=== PATIENT | female | born 1940 | race Caucasian/White ===

== ENCOUNTER 2016-06-13 17:23 | Emergency (ER) | payer MEDICARE ==
[~2016-06-13] VITALS: Ht 165.1 cm; Wt 68.0 kg
[2016-06-13] MEDS ORDERED: PRAV40TA2 PO (17:45)
[2016-06-13] MEDS ORDERED: BIMA01SOL (17:45)
[2016-06-13] MEDS ORDERED: AMLO25TA PO (17:45)
[2016-06-13] MEDS ORDERED: PLAV75TA38 PO (17:45)
[2016-06-13] MEDS ORDERED: BRIN1OPH (17:45)
[2016-06-13] MEDS ORDERED: LEVO88TA3 PO (17:45)
--- NOTE | 2016-06-13 19:44 | REP ---
CT HEAD WITHOUT CONTRAST: HISTORY: Syncope. COMPARISON: None. TECHNIQUE: 4.5 mm contiguous transaxial sections were obtained from the skull base to the cerebral convexities with thin cuts through the posterior fossa with and without the administration of intravenous contrast. FINDINGS: The ventricles and sulci are consistent with the patient's age. There are no extra-axial fluid collections. There is no mass effect on the non-contrast scan and there are no enhancing mass lesions on the post contrast scan. The deep cerebral white matter is consistent with the patient's age. The orbital and petrous structures, cerebellopontine angles and posterior fossa are unremarkable. The sella turcica, cavernous and paracavernous structures are essentially unremarkable. The visualized portions of the paranasal sinuses and mastoid air cells are clear. IMPRESSION: Essentially unremarkable CT examination of the brain. Signed by Davin Garcia DO 06/13/2016 07:51 P
[2016-06-13 20:25] VITALS: BP 125/66
--- NOTE | 2016-06-13 21:10 | ECGEPIP ---
Stationary ECG Study [facility] - ED Test Date: 2016-06-13 Pat Name: SHADE SANDOVAL Department: Room: - Gender: F Admitting Clerk: chris : [id number] Requested By: KITTY Parrish Order Number: [id number] Reading MD: Moira Romero Measurements Intervals Orient Rate: 70 P: 50 MA: 149 QRS: 16 QRSD: 92 T: 39 QT: 398 QTc: 431 Interpretive Statements SINUS RHYTHM WITH OCCASIONAL VENTRICULAR PREMATURE COMPLEXES NO PRIOR FOR COMPARISON Electronically Signed On 06-13-2016 21:10:06 EDT by Moira Romero
== END 2016-06-13 20:27 | disposition left against medical advice (07) ==
LOC: M ED 19:42
DX: R42 Dizziness and giddiness (principal); N39.0 Urinary tract infection, site not specified; I10 Essential (primary) hypertension; E78.5 Hyperlipidemia, unspecified; Z95.5 Presence of coronary angioplasty implant and graft; F17.200 Nicotine dependence, unspecified, uncomplicated; Z79.02 Long term (current) use of antithrombotics/antiplatelets; Z79.899 Other long term (current) drug therapy

== ENCOUNTER → 2016-06-13 | Outpatient (REF) | payer MEDICARE ==
[~2016-06-13] MED LIST: AMLO25TA PO; BIMA01SOL; BRIN1OPH; LEVO88TA3 PO; PLAV75TA38 PO; PRAV40TA2 PO
== END ==
LOC: M LAB REF 16:26
PROVIDERS: ATTEND Physician Assistant
DX: N39.0 Urinary tract infection, site not specified (principal)

== ENCOUNTER 2018-01-28 06:44 | Day surgery (SDC) | payer MEDICARE ==
[~2018-01-28 06:44] MED LIST changes: +ACETAMINOPHEN 325 MG TAB PO; -AMLO25TA PO; -BIMA01SOL; -BRIN1OPH; -LEVO88TA3 PO; -PLAV75TA38 PO; -PRAV40TA2 PO
[2018-01-28] MEDS ORDERED: PHENYLEPHRINE HCL 10 % OPHTH. SOL 5ML OS (07:00)
[2018-01-28] MEDS ORDERED: PROPARACAINE 0.5% OPHTH SOL 15ML OS (07:01)
[2018-01-28] MEDS: LIDOCAINE 3.5 % 1ML OPHTH TOPICAL GEL OU (07:44)
[2018-01-28] MEDS: OFLOXACIN 0.3 % (OCUFLOX) OPTH SOL 5ML OS (07:44)
[2018-01-28] MEDS: CYCLOPENTOLATE 2% OPHTH SOLN 2ML BTL OS (07:45)
[2018-01-28] MEDS: TROPICAMIDE 1% OPHTH SOLN 2ML OS (07:45)
[2018-01-28] MEDS: PHENYLEPHRINE 2.5% OPHTH SOL 2ML OS (07:45)
[2018-01-28] MEDS: TRIAMCINOLONE PRES FR 40 MG/ML 1ML(TRIESENCE)(OR EYE ONLY)(J3300 PER 1MG) As Ordered (07:53)
[2018-01-28] MEDS: MOXIFLOXACIN IN BSS 0.25MG/0.25ML INTRACAMERAL INJ (OR EYE ONLY)(J2280) As Ordered (07:53)
[2018-01-28] MEDS ORDERED: SCOPOLAMINE 1MG TRANSDERMAL PATCH As Ordered (08:14)
[2018-01-28] MEDS ORDERED: ONDANSETRON 4MG/2ML VIAL (J2405) As Ordered (08:15)
[2018-01-28] MEDS ORDERED: ONDANSETRON 4MG/2ML VIAL (J2405) IV (08:30)
[2018-01-28] MEDS ORDERED: fentaNYL 100 MCG/2 ML INJECTION (J3010) As Ordered (08:37)
[2018-01-28] MEDS ORDERED: MIDAZOLAM INJ 2 MG/2 ML VIAL (J2250) As Ordered (08:37)
[2018-01-28] MEDS: POVIDONE-IODINE 5% OPHTH PREP SOL 30ML As Ordered (08:39)
[2018-01-28] MEDS: HEALON DUET (HEALON 10MG/ML 0.55ML & HEALON ENDOCOAT 30MG/ML 0.85ML) As Ordered (08:48)
[2018-01-28] MEDS: BSS with VANC/TOB/EPI for EYE CASES IR (08:48)
[2018-01-28] MEDS: LIDOCAINE 1% SDV 5 ML VIAL As Ordered (08:48)
[2018-01-28] MEDS: CEFUROXIME 1MG/0.1ML INTRACAMERAL INJ As Ordered (08:49)
[2018-01-28] MEDS: AcetaZOLAMIDE 500 MG ER CAP PO (09:23)
[2018-01-28] MEDS ORDERED: TRIMETHOBENZAMIDE 300 MG CAP PO (09:30)
[2018-01-28] MEDS ORDERED: KETOROLAC 0.5% OPHTH SOLN OS (09:30)
== END 2018-01-28 09:38 | disposition home or self-care (01) ==
LOC: M SDC 06:44
DX: H26.9 Unspecified cataract (principal); H40.9 Unspecified glaucoma; I10 Essential (primary) hypertension; E78.00 Pure hypercholesterolemia, unspecified; I73.9 Peripheral vascular disease, unspecified; K21.9 Gastro-esophageal reflux disease without esophagitis; Z79.899 Other long term (current) drug therapy; Z79.01 Long term (current) use of anticoagulants; Z95.828 Presence of other vascular implants and grafts; Z72.0 Tobacco use; Z90.710 Acquired absence of both cervix and uterus
CPT/HCPCS: 66984

== ENCOUNTER 2020-05-24 17:59 | Emergency (ER) | payer MEDICARE ==
[~2020-05-24] VITALS: Ht 160 cm; Wt 63.0 kg
[~2020-05-24 17:59] MED LIST changes: -ACETAMINOPHEN 325 MG TAB PO; +AMLO25TA PO; +BIMA01SOL; +BRIN1OPH OU; +LEVO88TA3 PO; +OMEP40CA97 PO; +PLAV1TAB2 PO; +PRAV40TA2 PO; +[UNRECOGNIZED DRUG - OTHER] OU
[2020-05-24] MEDS ORDERED: PREDOPD (18:10)
[2020-05-24] MEDS ORDERED: COMB0.2S (18:10)
[2020-05-24] MEDS ORDERED: PRESCAP PO (18:10)
[2020-05-24] MEDS ORDERED: NYSTATIN 100,000 UNITS/GM TOPICAL PWD 15 GM TOP STA (19:08)
[2020-05-24 19:22] LABS: BASO % 0.6 % (0.0-1.0); EOS # 0.2 10^3/uL (0.0-0.5); EOS % 3.5 % (0.0-3.0); HEMATOCRIT 42.9 % (36.0-47.0); HEMOGLOBIN 13.6 g/dl (12.0-15.5); LYMPH # 2.1 10^3/uL (1.5-5.0); LYMPH % 31.3 % (24.0-44.0); MEAN CORPUSCULAR HEMOGLOBIN 30.2 pg (27.0-33.0); MEAN CORPUSCULAR HGB CONC 31.7 g/dl (32.0-36.5); MEAN CORPUSCULAR VOLUME 95.1 fl (80.0-96.0); MONO # 0.6 10^3/uL (0.0-0.8); MONO % 9.1 % (2.0-8.0); NEUTROPHILS # 3.6 10^3/uL (1.5-8.5); NEUTROPHILS % 55.2 % (36.0-66.0); PLATELET COUNT, AUTOMATED 234 10^3/uL (150-450); RED BLOOD COUNT 4.51 10^6/uL (4.00-5.40); WHITE BLOOD COUNT 6.6 10^3/uL (4.0-10.0)
[2020-05-24 19:48] LABS: ALBUMIN 4.3 GM/DL (3.2-5.2); BILIRUBIN,DIRECT 0.1 MG/DL (0.0-0.2); BILIRUBIN,TOTAL 0.3 MG/DL (0.2-1.0); TOTAL PROTEIN 7.7 GM/DL (6.4-8.2)
[2020-05-24] MEDS ORDERED: ISOVUE-370 76% 100ML VIAL As Ordered ONE (20:29)
--- NOTE | 2020-05-24 21:07 | REPVR ---
PROCEDURE INFORMATION: Exam: CT Abdomen And Pelvis With Contrast Exam date and time: 05/24/2020 8:33 PM Age: 80 years old Clinical indication: Abdominal pain; Additional info: Diffuse abd pain, worse with food, 5 days TECHNIQUE: Imaging protocol: Computed tomography of the abdomen and pelvis with contrast. Radiation optimization: All CT scans at this facility use at least one of these dose optimization techniques: automated exposure control; mA and/or kV adjustment per patient size (includes targeted exams where dose is matched to clinical indication); or iterative reconstruction. Contrast material: ISOVUE 370; Contrast volume: 100 ml; Contrast route: INTRAVENOUS (IV); COMPARISON: No relevant prior studies available. FINDINGS: Lungs: No suspicious mass or airspace process in the visualized lung bases. Liver: Liver appears normal with no focal abnormality. Gallbladder and bile ducts: Gallbladder is present and shows no evidence of gallstone. Pancreas: Pancreas appears normal. No focal mass or peripancreatic inflammation. Spleen: Spleen appears homogeneous without focal mass. Adrenal glands: Adrenal glands are normal in appearance. Kidneys and ureters: Kidneys appear normal, with no stone, solid mass or hydronephrosis. Stomach and bowel: No concerning asymmetry or abnormality at the GE junction. No evidence of small bowel obstruction. There may be eccentric edema involving the distal gastric antrum. Terminal ileum has normal appearance. Diverticular changes are present within the colon without inflammation. Appendix: Normal caliber appendix is identified, with no adjacent inflammation. Intraperitoneal space: No pneumoperitoneum. Vasculature: Atherosclerotic change present in the aorta, without aneurysm. Main portal and splenic veins enhance normally. Bilateral common iliac artery stents are present. Lymph nodes: Unremarkable. No enlarged lymph nodes. Urinary bladder: Urinary bladder appears normal. Reproductive: Unremarkable as visualized. Bones/joints: Degenerative changes are seen in the lumbar spine with disc height loss, endplate osteophytes and hypertrophic facet arthropathy. Old appearing insufficiency fractures at L5 and T12. Soft tissues: Unremarkable. IMPRESSION: Eccentric mural edema involving the posterior wall of the distal gastric antrum, suggesting gastritis or peptic ulcer disease. No evidence of perforated ulcer. Electronically signed by: Moses Palacios On 05/24/2020 21:07:53 PM
[2020-05-24] MEDS ORDERED: NYST1POW9 TOP (21:57)
[2020-05-24 22:01] VITALS: BP 168/86
== END 2020-05-24 22:08 | disposition home or self-care (01) ==
LOC: M ED 17:59
DX: B37.2 Candidiasis of skin and nail (principal); R10.84 Generalized abdominal pain; I10 Essential (primary) hypertension; E78.5 Hyperlipidemia, unspecified; Z79.899 Other long term (current) drug therapy; Z79.01 Long term (current) use of anticoagulants; Z88.1 Allergy status to other antibiotic agents; Z88.2 Allergy status to sulfonamides
CPT/HCPCS: 36415; 74177; 80047; 80076; 81001; 83690; 85025; 99283; Q9967

== ENCOUNTER 2020-08-12 19:14 | Emergency (ER) | payer MEDICARE ==
[~2020-08-12] VITALS: Ht 160 cm; Wt 61.4 kg
[~2020-08-12 19:14] MED LIST changes: +COMB0.2S; +NYST1POW9 TOP; +PREDOPD; +PRESCAP PO
[2020-08-12 19:15] VITALS: BP 125/72
[2020-08-12] MEDS ORDERED: DOXY-350 PO (20:20)
[2020-08-15 14:16] LABS: Lyme Disease IgG/IgM Antibodie <0.91 ISR (0.00-0.90); Lyme Disease IgM Ab Quantitati <0.80 index (0.00-0.79)
== END 2020-08-12 20:30 | disposition home or self-care (01) ==
LOC: M ED 19:14
DX: R21 Rash and other nonspecific skin eruption (principal); I10 Essential (primary) hypertension; E78.5 Hyperlipidemia, unspecified; Z79.899 Other long term (current) drug therapy; Z88.2 Allergy status to sulfonamides

== ENCOUNTER → 2022-10-25 | Outpatient (CLI) | payer MEDICARE ==
[~2022-10-25] MED LIST changes: +CLOP75TA99 PO; +DOXY-444 PO; +OMEP40CA4 PO; -OMEP40CA97 PO; -PLAV1TAB2 PO
== END ==
LOC: M RAD 08:59
PROVIDERS: ATTEND Internal Medicine Nephrology
DX: I70.1 Atherosclerosis of renal artery (principal)